=== PATIENT | male | born 1995 | race Caucasian/White ===

== ENCOUNTER 2017-10-12 21:02 | Emergency (ER) | payer OTHER ==
[2017-10-12] MEDS ORDERED: Acetaminophen TAB* 325 MG PO ONE (21:29)
[2017-10-12] MEDS ORDERED: NS 0.9% 1000 ML*IV.FLUID IV ONE (21:29)
--- NOTE | 2017-10-12 21:49 | RAD ---
INDICATION: Fever COMPARISON: None TECHNIQUE: An AP portable view obtained at 2135 hours is submitted. FINDINGS: Bones/Soft Tissues: There are no acute bony findings. Cardiomediastinal: The cardiomediastinal silhouette is normal. Lungs: There are no infiltrates. Pleura: There are no pleural effusions. Other: None IMPRESSION: NO ACTIVE DISEASE.
--- NOTE | 2017-10-12 21:54 | RAD ---
INDICATION: Fever. Sinusitis. COMPARISON: None TECHNIQUE: Axial images of the paranasal sinuses were acquired. Coronal and sagittal reconstructed images were obtained. FINDINGS: Frontal sinuses: The frontal air cells are hypoplastic and largely opacified. Ethmoid sinuses: There is opacification of the anterior ethmoid air cells bilaterally. Maxillary sinuses: There is 70% opacification of both maxillary antra with air-fluid levels. Sphenoid sinuses: There is circumferential mucosal thickening of the sphenoid air cells. Nasal passageway: The nasal septum is midline. The nasal passageway is clear. The ostiomeatal complexes are occluded. Orbits: The globes and intraconal contents are unremarkable. Brain: The visualized brain parenchyma is unremarkable. Other: None. IMPRESSION: PANSINUSITIS WITH OCCLUSION OF THE OSTIOMEATAL COMPLEXES
[2017-10-12 22:10] LABS: Hematocrit 43 % (42-52); Hemoglobin 14.1 g/dl (14.0-18.0); Mean Corpuscular HGB Conc 33 g/dl (31-36); Mean Corpuscular Hemoglobin 29 pg (27-31); Mean Corpuscular Volume 86 fL (80-94); Mean Platelet Volume 8.2 um3 (7.4-10.4); Platelet Count 118 10^3/ul (150-450); Red Blood Count 4.92 10^6/ul (4.0-5.4); Red Cell Distribution Width 14 % (10.5-15)
[2017-10-12 22:27] LABS: EGFR Non-African American 101.6 (>60)
[2017-10-12] MEDS ORDERED: Piperacillin/Tazobac ADVAN(*) 3.375 GM in NS 0.9% 100 ML* 100 ML IVPB ONE (22:33)
[2017-10-12] MEDS ORDERED: methylPREDNISolone 125 MG* 2 ML VIAL IV ONE (22:34)
[2017-10-12 22:43] LABS: Monocytes % 10 % (0-7)
[2017-10-13 00:02] VITALS: BP 128/66
--- NOTE | 2017-10-13 03:02 | ED ---
Jace Hardin Julia, scribed for Ricardo Chery MD on 10/12/17 at 2128 . HPI Febrile Illness - HPI Summary HPI Summary: This patient is a 22 year old M presenting to [facility] with a chief complaint of a Fever of 102 for the past three days with sore throat and nausea. Patient reports mild sinus tenderness, and a headache with onset. Pain is 3/10 in severity. Denies vomiting, diarrhea, and ear pain. - History of Current Complaint Chief Complaint: EDFever Time Seen by Provider: 10/12/17 21:17 Hx Obtained From: Patient Onset/Duration: Started Days Ago, Still Present Timing: Constant Pain Intensity: 3 Pain Scale Used: 0-10 Numeric Alleviating Factors: Nothing Associated Signs and Symptoms: Headache, Sore Throat - Allergy/Home Medications Allergies/Adverse Reactions: Allergies Allergy/AdvReac Type Severity Reaction Status Date / Time cefazolin [From [facility]] Allergy Unknown Verified 10/12/17 21:08 Reaction Details PMH/Surg Hx/FS Hx/Imm Hx Cardiovascular History: Denies: Hx Congestive Heart Failure, Hx Coronary Artery Disease EENT History: Denies: Hx Deafness Infectious Disease History: No Infectious Disease History: Denies: Traveled Outside the [place] in Last 30 Days - Family History Known Family History: Positive: Hypertension - Social History Occupation: Student Alcohol Use: Occasionally Review of Systems Positive: Fever Positive: Sore Throat, Other - sinus pain . Negative: Ear Ache Positive: Nausea Positive: Headache All Other Systems Reviewed And Are Negative: Yes Physical Exam - Summary Physical Exam Summary: VITAL SIGNS: Reviewed. GENERAL: Patient is a well-developed and nourished male who is lying comfortable in the stretcher. Patient is not in any acute respiratory distress. HEAD AND FACE: No signs of trauma. No ecchymosis, hematomas or skull depressions. No sinus tenderness. EYES: PERRLA, EOMI x 2, No injected conjunctiva, no nystagmus. EARS: Hearing grossly intact. L TM is normal. R TM with cerumen impaction MOUTH: Oropharynx within normal limits. There is post nasal drip ( thick and yellow) NECK: Supple, trachea is midline, no adenopathy, no JVD, no carotid bruit, no c- spine tenderness, neck with full ROM. CHEST: Symmetric, no tenderness at palpation LUNGS: Clear to auscultation bilaterally. No wheezing or crackles. CVS: Regular rate and rhythm, S1 and S2 present, no murmurs or gallops appreciated. ABDOMEN: Soft, non-tender. No signs of distention. No rebound no guarding, and no masses palpated. Bowel sounds are normal. EXTREMITIES: FROM in all major joints, no edema, no cyanosis or clubbing. NEURO: Alert and oriented x 3. No acute neurological deficits. Speech is normal and follows commands. SKIN: Dry and warm Triage Information Reviewed: Yes Vital Signs On Initial Exam: Initial Vitals Temp Pulse Resp BP Pulse Ox 102.2 F 116 20 152/71 97 10/12/17 21:08 10/12/17 21:08 10/12/17 21:08 10/12/17 21:08 10/12/17 21:08 Vital Signs Reviewed: Yes Diagnostics - Vital Signs Vital Signs Temp Pulse Resp BP Pulse Ox 10/12/17 21:08 102.2 F 116 20 152/71 97 - Laboratory Result Diagrams: 10/12/17 21:58 10/12/17 21:58 Lab Statement: Any lab studies that have been ordered have been reviewed, and results considered in the medical decision making process. - Radiology CXR Radiology Interpretation Completed By: Radiologist - No acute disease. Dr. Chery has reviewed this report. - CT Sinus CT CT Interpretation Completed By: Radiologist - PANSINUSITIS WITH OCCLUSION OF THE OSTIOMEATAL COMPLEXES. Dr. Chery has reviewed this report. Course/Dx - Course Course Of Treatment: 22 year old M presenting to [facility] with a chief complaint of a Fever of 102 for the past three days with sore throat and nausea. Patient reports mild sinus tenderness, and a headache with onset. Pt is given IV Fluids, Tylenol, and Solu-Medrol. CXR is negative for acute pathology. Sinus CT reveals, as per radiologist, "PANSINUSITIS WITH OCCLUSION OF THE OSTIOMEATAL COMPLEXES". Lab work is positive for mononucleosis. Patient is informed of results. Patietn will be discharged with a prescription for Amoxicillin, Motrin , and Prednisone. Patient instructed to follow up with PCP. Patient is agreeable with this plan. - Diagnoses Provider Diagnoses: Mononucleosis Discharge - Sign-Out/Discharge Documenting (check all that apply): Discharge/Admit/Transfer - Discharge Plan Condition: Stable Disposition: HOME Prescriptions: Amoxicillin/Clavulanate TAB* [Augmentin TAB 875*] 875 mg PO BID #20 tab Ibuprofen TAB* [Motrin TAB* 800 MG] 800 mg PO Q6H PRN #30 tab PRN Reason: Pain Or Temperature predniSONE TAB* [Deltasone TAB*] 40 mg PO DAILY #10 tab Patient Education Materials: Mononucleosis (ED) Referrals: [facility] - Jose THOMSON [Medical Doctor] - If Needed (Follow up with primary care provider as needed. ) Additional Instructions: RETURN TO EMERGENCY DEPARTMENT FOR ANY NEW OR WORSENING SYMPTOMS The documentation as recorded by the Jace marrufo Julia accurately reflects the service I personally performed and the decisions made by , Ricardo Chery MD.
== END 2017-10-13 00:01 | disposition home or self-care (01) ==
LOC: ED 21:02
DX: B27.90 Infectious mononucleosis, unspecified without complication (principal); J32.4 Chronic pansinusitis; Z88.1 Allergy status to other antibiotic agents
CPT/HCPCS: 36415; 70486; 71045; 80053; 82550; 83605; 85025; 85060; 86140; 86308; 87040; 87651; 96374; 96375; 99283; A9270-GY; J2543; J2930